=== PATIENT | male | born 1970 | race Caucasian/White ===

== ENCOUNTER 2016-11-03 14:54 | Emergency (ER) | payer MEDICAID ==
[~2016-11-03] VITALS: Ht 170.2 cm; Wt 88.5 kg
[2016-11-03 14:56] VITALS: BP 119/76
--- NOTE | 2016-11-03 16:35 | NUR ---
Patient to bed 08.
[2016-11-03] MEDS ORDERED: KETOROLAC 60 MG/2 ML VIAL IM ONE (16:45)
--- NOTE | 2016-11-03 16:46 | NUR ---
46/M presents to ED for evaluation of epigastric pain, right upper chest pain radiating to middle of back after a slip and fall today off a truck. Pt states he slipped and fell and hit his chest on the back of a car. Pt has a red circular michelle, half dollar size. Pt c/o dull, aching pain, radiating to mid back, constant, worse with deep inhalation, 10/10. Respirations even and unlabored. Lungs clear bilaterally. Patient is AOX4, italian speaking. VSS.
--- NOTE | 2016-11-03 17:32 | NUR ---
Patient appears to be resting comfortably in bed. Vital Signs within normal limits. Respirations even and unlabored.
--- NOTE | 2016-11-03 19:01 | NUR ---
Patient being evaluated by Dr. Francois at bedside.
--- NOTE | 2016-11-03 19:05 | NUR ---
Pt report given to Donya RUBI. Transfer of care at this time.
[2016-11-03 19:20] VITALS: BP 119/79
== END 2016-11-03 19:20 | disposition home or self-care (01) ==
LOC: MED 14:54
DX: S20.219A Contusion of unspecified front wall of thorax, initial encounter (principal); W22.8XXA Striking against or struck by other objects, initial encounter; Y93.89 Activity, other specified; Y92.89 Other specified places as the place of occurrence of the external cause; Y99.8 Other external cause status
CPT/HCPCS: 71020; 93005; 96372; 99284; J1885